=== PATIENT | female | born 1930 | race Caucasian/White ===

== ENCOUNTER 2020-05-25 09:30 | Inpatient (IN) | payer MEDICARE ==
[2020-05-25] MEDS ORDERED: Ondansetron ODT 4 MG TAB PO PRN (11:25)
[2020-05-25] MEDS ORDERED: Acetaminophen 650 MG Suppository PR PRN (11:25)
[2020-05-25] MEDS ORDERED: Ondansetron PF 4 MG/2 ML Vial IVP PRN (11:25)
[2020-05-25] MEDS ORDERED: Acetaminophen 325 MG TAB PO PRN (11:25)
[2020-05-25 12:23] LABS: Lactic Acid 3.8 mmol/L (0.5-2.2)
[2020-05-25 12:49] LABS: CKMB 1.6 ng/mL (0-6.6)
[2020-05-25 12:51] LABS: Anisocytosis SLIGHT = 6-15 cells (100X) (0-5/hpf); Band 12 % (5-11); Hemoglobin 7.7 g/dL (12.0-16.0); Large Platelets SLIGHT; Lymphocytes 28 % (21-51); MDiff Complete? YES; Mean Corpuscular HGB CONC 34.5 g/dL (32.0-36.0); Mean Corpuscular Hemoglobin 30.9 pg (27.0-31.0); Mean Corpuscular Volume 89.8 fL (78.0-98.0); Mean Platelet Volume 14.3 fL (7.4-10.4); Monocytes 15 % (0-10); Neutrophil 44 % (42-75); Nucleated RBC 10 % (0); Ovalocytes SLIGHT = 2-5 cells (100X) (0-1/hpf); Platelet Count 33 thou/uL (130-400); Platelet Morphology Comment Appears Decreased; Polychromasia MODERATE = 3-4 cells (100X) (0-2/hpf); RBC Distribution Width 16.4 % (11.5-14.5); Reactive Lymphocytes 1 % (0-10); Red Blood Cell (RBC) Count 2.48 mill/uL (4.20-5.40); Schistocytes SLIGHT = 2-5 cells (100X) (0-1/hpf); Target Cells SLIGHT = 2-5 cells (100X) (0-1/hpf); Tear Drops SLIGHT = 2-5 cells (100X) (0-1/hpf); White Blood Cell (WBC) Count 2.5 thou/uL (4.8-10.8)
[2020-05-25 14:04] LABS: Troponin I 0.033 ng/mL (< 0.028)
[2020-05-25] MEDS: Metoclopramide HCl 10 MG/2 ML VIAL IVP SCH ×2 (16:00→20:29)
[2020-05-25] MEDS: Sodium Chloride 0.9% 1,000 ML IV SCH (16:00)
[2020-05-25 16:39] LABS: Troponin I 0.037 ng/mL (< 0.028)
[2020-05-25 18:23] LABS: SARS-CoV-2 PCR by NAA Not Detected (NotDetected)
[2020-05-25] MEDS: Pantoprazole 40 MG VIAL IVP SCH (20:06)
[2020-05-26] MEDS: Guaifenesin DM 100-10/5 ML UDCUP PO PRN ×3 (01:15→21:29)
[2020-05-26 05:11] LABS: Anion Gap 15 mmol/L (10-20); BUN (Urea Nitrogen) 46 mg/dL (9.8-20.1); Calc. Creatinine Clearance 28 mL/min (70-130); Calcium 7.8 mg/dL (7.8-10.44); Carbon Dioxide 22 mmol/L (23-31); Chloride 104 mmol/L (98-107); Glucose 121 mg/dL (83-110); Potassium 3.5 mmol/L (3.5-5.1); Sodium 137 mmol/L (136-145)
[2020-05-26] MEDS: Metoclopramide HCl 10 MG/2 ML VIAL IVP SCH ×3 (05:47→21:08)
[2020-05-26 06:17] LABS: Anisocytosis SLIGHT = 6-15 cells (100X) (0-5/hpf); Band 8 % (5-11); Eosinophils 1 % (0-10); Hemoglobin 6.4 g/dL (12.0-16.0); Lymphocytes 40 % (21-51); MDiff Complete? YES; Mean Corpuscular HGB CONC 33.7 g/dL (32.0-36.0); Mean Corpuscular Volume 91.9 fL (78.0-98.0); Mean Platelet Volume 13.7 fL (7.4-10.4); Monocytes 12 % (0-10); Neutrophil 38 % (42-75); Nucleated RBC 22 % (0); Platelet Count 25 thou/uL (130-400); Platelet Morphology Comment Appears Decreased; RBC Distribution Width 16.4 % (11.5-14.5); Red Blood Cell (RBC) Count 2.07 mill/uL (4.20-5.40); White Blood Cell (WBC) Count 1.8 thou/uL (4.8-10.8)
[2020-05-26 08:14] VITALS: BMI 23.7
[2020-05-26] MEDS ORDERED: FLU VACC QS2020-21(65YR UP)/PF 240 MCG/0.7 ML SYRINGE IM ONE (09:00)
[2020-05-26] MEDS: Pantoprazole 40 MG VIAL IVP SCH ×2 (10:49→21:08)
[2020-05-26] MEDS: Sodium Chloride 0.9% 1,000 ML IV SCH (10:53)
[2020-05-26] MEDS: Benzonatate 100 MG CAP PO PRN (17:38)
[2020-05-27] MEDS: Guaifenesin DM 100-10/5 ML UDCUP PO PRN ×3 (05:23→16:27)
[2020-05-27] MEDS: Benzonatate 100 MG CAP PO PRN ×2 (05:23→10:50)
[2020-05-27] MEDS: Metoclopramide HCl 10 MG/2 ML VIAL IVP SCH (05:23)
[2020-05-27 06:34] LABS: Anion Gap 12 mmol/L (10-20); BUN (Urea Nitrogen) 39 mg/dL (9.8-20.1); Calc. Creatinine Clearance 34 mL/min (70-130); Calcium 8.1 mg/dL (7.8-10.44); Carbon Dioxide 23 mmol/L (23-31); Chloride 104 mmol/L (98-107); Glucose 150 mg/dL (83-110); Potassium 3.4 mmol/L (3.5-5.1); Sodium 136 mmol/L (136-145)
[2020-05-27 06:44] LABS: Mean Corpuscular Hemoglobin 30.9 pg (27.0-31.0); Mean Corpuscular Volume 90.9 fL (78.0-98.0); Mean Platelet Volume 13.8 fL (7.4-10.4); Platelet Count 29 thou/uL (130-400); RBC Distribution Width 16.1 % (11.5-14.5); Red Blood Cell (RBC) Count 2.59 mill/uL (4.20-5.40); White Blood Cell (WBC) Count 2.5 thou/uL (4.8-10.8)
[2020-05-27 06:58] LABS: Band 9 % (5-11); Eosinophils 3 % (0-10); Lymphocytes 33 % (21-51); MDiff Complete? YES; Monocytes 16 % (0-10); Neutrophil 39 % (42-75); Nucleated RBC 18 % (0); Platelet Morphology Comment Appears Decreased
[2020-05-27] MEDS: Potassium Chloride 20 MEQ TAB PO SCH ×2 (08:58→16:27)
[2020-05-27] MEDS: Pantoprazole 40 MG VIAL IVP SCH ×2 (08:59→22:06)
[2020-05-27] MEDS ORDERED: D5W-AA 4.25% with LYTES 1,000 ML BAG IV SCH (09:30)
[2020-05-27] MEDS ORDERED: D5 1/2 NS w/20 mEq KCL 1,000 ML IV SCH ×2 (11:00→11:02)
[2020-05-27] MEDS ORDERED: D5 0.9% NS w/ 20 mEq KCl 1,000 ML IV SCH (11:15)
[2020-05-27] MEDS: Sodium Chloride 0.9% 1,000 ML IV SCH (11:17)
[2020-05-27 12:06] LABS: Phosphorus 2.7 mg/dL (2.3-4.7)
[2020-05-27] MEDS: D5 0.9% NS w/ 20 mEq KCl 1,000 ML IV SCH (14:21)
[2020-05-27] MEDS ORDERED: MEROPENEM 1 GM/50 ML 1 GM in Premix Bag 1 BAG IVPB SCH (14:30)
[2020-05-27] MEDS: Senokot S 8.6-50 MG TAB PO SCH (21:24)
[2020-05-27] MEDS: Polyethylene Glycol 3350 17 GM Packet PO SCH (21:24)
[2020-05-27] MEDS: Acetaminophen 325 MG TAB PO SCH (21:25)
[2020-05-27] MEDS: Bisacodyl 10 MG SUPP PR SCH (21:26)
[2020-05-27] MEDS: MEROPENEM 1 GM/50 ML 1 GM in Premix Bag 1 BAG IVPB SCH (22:06)
[2020-05-28] MEDS: Guaifenesin DM 100-10/5 ML UDCUP PO PRN ×3 (00:11→21:42)
[2020-05-28] MEDS: Benzonatate 100 MG CAP PO PRN ×3 (00:11→21:41)
[2020-05-28] MEDS: MEROPENEM 1 GM/50 ML 1 GM in Premix Bag 1 BAG IVPB SCH ×3 (06:15→21:33)
[2020-05-28] MEDS: Acetaminophen 325 MG TAB PO SCH ×3 (07:45→21:34)
[2020-05-28] MEDS: Bisacodyl 10 MG SUPP PR SCH (07:49)
[2020-05-28] MEDS: Pantoprazole 40 MG VIAL IVP SCH (07:50)
[2020-05-28] MEDS: Senokot S 8.6-50 MG TAB PO SCH ×3 (07:51→21:34)
[2020-05-28] MEDS: Polyethylene Glycol 3350 17 GM Packet PO SCH (07:51)
[2020-05-28] MEDS: Citrucel 500 MG TAB PO SCH (07:59)
[2020-05-28 08:32] LABS: Phosphorus 2.5 mg/dL (2.3-4.7)
[2020-05-28 08:37] LABS: ALT (SGPT) 7 U/L (8-55); AST (SGOT) 6 U/L (5-34); Albumin 3.1 g/dL (3.4-4.8); Alkaline Phosphatase 56 U/L (40-110); Anion Gap 12 mmol/L (10-20); BUN (Urea Nitrogen) 31 mg/dL (9.8-20.1); Calc. Creatinine Clearance 42 mL/min (70-130); Calcium 8.1 mg/dL (7.8-10.44); Carbon Dioxide 24 mmol/L (23-31); Chloride 107 mmol/L (98-107); Globulin 2.3 g/dL (2.4-3.5); Glucose 122 mg/dL (83-110); Magnesium 2.1 mg/dL (1.6-2.6); Potassium 3.8 mmol/L (3.5-5.1); Protein, Total 5.4 g/dL (5.8-8.1); Sodium 139 mmol/L (136-145)
[2020-05-28] MEDS ORDERED: traMADol HCl 50 MG TAB PO PRN (08:56)
[2020-05-28 09:16] LABS: Anisocytosis MODERATE=16-30 cells (100X) (0-5/hpf); Band 5 % (5-11); Eosinophils 1 % (0-10); Hemoglobin 7.7 g/dL (12.0-16.0); Large Platelets SLIGHT; Lymphocytes 50 % (21-51); MDiff Complete? YES; Mean Corpuscular HGB CONC 33.3 g/dL (32.0-36.0); Mean Corpuscular Hemoglobin 30.7 pg (27.0-31.0); Mean Corpuscular Volume 92.1 fL (78.0-98.0); Mean Platelet Volume 14.6 fL (7.4-10.4); Metamyelocyte 1 % (0-0); Monocytes 5 % (0-10); Myelocyte 1 % (0-0); Neutrophil 36 % (42-75); Nucleated RBC 11 % (0); Platelet Count 26 thou/uL (130-400); Platelet Morphology Comment Appears Decreased; Poikilocytosis SLIGHT = 6-15 cells (100X) (0-5/hpf); Polychromasia SLIGHT = 2-3 cells (100X) (0-2/hpf); RBC Distribution Width 16.4 % (11.5-14.5); Reactive Lymphocytes 1 % (0-10); Red Blood Cell (RBC) Count 2.52 mill/uL (4.20-5.40)
[2020-05-28] MEDS: D5 0.9% NS w/ 20 mEq KCl 1,000 ML IV SCH (14:39)
[2020-05-29 05:35] LABS: ALT (SGPT) 7 U/L (8-55); AST (SGOT) 7 U/L (5-34); Albumin 3.1 g/dL (3.4-4.8); Alkaline Phosphatase 58 U/L (40-110); Anion Gap 12 mmol/L (10-20); BUN (Urea Nitrogen) 26 mg/dL (9.8-20.1); Bilirubin, Total 0.8 mg/dL (0.2-1.2); Calc. Creatinine Clearance 48 mL/min (70-130); Calcium 8.1 mg/dL (7.8-10.44); Carbon Dioxide 24 mmol/L (23-31); Chloride 107 mmol/L (98-107); Globulin 2.3 g/dL (2.4-3.5); Glucose 107 mg/dL (83-110); Potassium 4.1 mmol/L (3.5-5.1); Protein, Total 5.4 g/dL (5.8-8.1); Sodium 139 mmol/L (136-145)
[2020-05-29] MEDS: MEROPENEM 1 GM/50 ML 1 GM in Premix Bag 1 BAG IVPB SCH ×3 (06:11→20:00)
[2020-05-29 06:14] LABS: Platelet Count 21 thou/uL (130-400)
[2020-05-29 06:36] LABS: Band 6 % (5-11); Hemoglobin 7.9 g/dL (12.0-16.0); Lymphocytes 45 % (21-51); MDiff Complete? YES; Mean Corpuscular HGB CONC 32.1 g/dL (32.0-36.0); Mean Corpuscular Hemoglobin 29.7 pg (27.0-31.0); Mean Corpuscular Volume 92.5 fL (78.0-98.0); Mean Platelet Volume 14.2 fL (7.4-10.4); Monocytes 7 % (0-10); Myelocyte 1 % (0-0); Neutrophil 39 % (42-75); Nucleated RBC 7 % (0); Platelet Morphology Comment Appears Decreased; RBC Distribution Width 16.3 % (11.5-14.5); Reactive Lymphocytes 1 % (0-10); Red Blood Cell (RBC) Count 2.65 mill/uL (4.20-5.40)
[2020-05-29] MEDS ORDERED: Loratadine 10 MG TAB PO PRN (07:34)
[2020-05-29] MEDS ORDERED: Zolpidem Tartrate 5 MG TAB PO PRN (07:34)
[2020-05-29] MEDS ORDERED: hydrALAZINE 20 MG/ML VIAL SLOW IVP PRN (07:34)
[2020-05-29] MEDS ORDERED: Sodium Chloride 0.65% Nasal 44 ML BOT EA NARE PRN (07:34)
[2020-05-29] MEDS ORDERED: Loperamide HCl 2 MG CAP PO PRN (07:34)
[2020-05-29] MEDS ORDERED: Bisacodyl 5 MG TAB PO PRN (07:34)
[2020-05-29] MEDS ORDERED: Calcium Carbonate 500 MG ChewTAB PO PRN (07:34)
[2020-05-29] MEDS ORDERED: Cepastat Lozenges 1 LOZ PO PRN (07:34)
[2020-05-29] MEDS ORDERED: GUAIFENESIN SF SOLN 200 MG/10 ML UDCUP PO PRN (07:34)
[2020-05-29] MEDS: Citrucel 500 MG TAB PO SCH (09:29)
[2020-05-29] MEDS: Senokot S 8.6-50 MG TAB PO SCH ×2 (09:29→20:00)
[2020-05-29] MEDS ORDERED: Furosemide 20 MG/2 ML VIAL SLOW IVP SCH (11:45)
[2020-05-29] MEDS: Guaifenesin DM 100-10/5 ML UDCUP PO PRN (20:11)
[2020-05-29] MEDS: Benzonatate 100 MG CAP PO PRN (20:11)
[2020-05-30] MEDS: MEROPENEM 1 GM/50 ML 1 GM in Premix Bag 1 BAG IVPB SCH (05:27)
[2020-05-30 06:54] LABS: Hemoglobin 8.6 g/dL (12.0-16.0); Mean Corpuscular HGB CONC 32.8 g/dL (32.0-36.0); Mean Corpuscular Hemoglobin 30.3 pg (27.0-31.0); Mean Corpuscular Volume 92.6 fL (78.0-98.0); Mean Platelet Volume 15.3 fL (7.4-10.4); Platelet Count 24 thou/uL (130-400); RBC Distribution Width 16.2 % (11.5-14.5); Red Blood Cell (RBC) Count 2.84 mill/uL (4.20-5.40); White Blood Cell (WBC) Count 2.4 thou/uL (4.8-10.8)
[2020-05-30 07:02] LABS: ALT (SGPT) 7 U/L (8-55); AST (SGOT) 8 U/L (5-34); Albumin 3.2 g/dL (3.4-4.8); Alkaline Phosphatase 67 U/L (40-110); Anion Gap 13 mmol/L (10-20); BUN (Urea Nitrogen) 19 mg/dL (9.8-20.1); Calc. Creatinine Clearance 49 mL/min (70-130); Calcium 8.3 mg/dL (7.8-10.44); Carbon Dioxide 26 mmol/L (23-31); Chloride 106 mmol/L (98-107); Globulin 2.4 g/dL (2.4-3.5); Glucose 103 mg/dL (83-110); Potassium 3.8 mmol/L (3.5-5.1); Protein, Total 5.6 g/dL (5.8-8.1); Sodium 141 mmol/L (136-145)
[2020-05-30 08:06] LABS: Band 4 % (5-11); Eosinophils 4 % (0-10); Lymphocytes 46 % (21-51); MDiff Complete? YES; Monocytes 8 % (0-10); Neutrophil 32 % (42-75); Nucleated RBC 6 % (0); Platelet Morphology Comment Appears Decreased; Polychromasia SLIGHT = 2-3 cells (100X) (0-2/hpf); Reactive Lymphocytes 4 % (0-10); Schistocytes SLIGHT = 2-5 cells (100X) (0-1/hpf)
[2020-05-30] MEDS ORDERED: Furosemide 20 MG TAB PO SCH (09:00)
[2020-05-30] MEDS ORDERED: Lisinopril 5 MG TAB PO SCH (09:00)
[2020-05-30 09:39] VITALS: BP 183/77; TEMP 98.2
[2020-05-30] MEDS: Citrucel 500 MG TAB PO SCH (09:44)
[2020-05-30] MEDS: Senokot S 8.6-50 MG TAB PO SCH (09:44)
[2020-05-30] MEDS ORDERED: Carvedilol 6.25 MG TAB PO SCH (17:00)
== END 2020-05-30 12:33 | disposition home or self-care (01) | DRG 871 ==
LOC: ERS 09:30 → ERHOLD 10:47 → 2NO 15:08 → ONC 05-26 14:17
PROVIDERS: ADMIT Internal Medicine; ATTEND Internal Medicine
PROC: 30233N1 Transfusion of Nonautologous Red Blood Cells into Peripheral Vein, Percutaneous Approach (ICD-10-PCS; principal; 2020-05-26)
DX: A41.9 Sepsis, unspecified organism (principal); D61.810 Antineoplastic chemotherapy induced pancytopenia; J69.0 Pneumonitis due to inhalation of food and vomit; J96.01 Acute respiratory failure with hypoxia; G92 Toxic encephalopathy; I24.8 Other forms of acute ischemic heart disease; N17.9 Acute kidney failure, unspecified; C92.00 Acute myeloblastic leukemia, not having achieved remission; J90 Pleural effusion, not elsewhere classified; I13.0 Hypertensive heart and chronic kidney disease with heart failure and stage 1 through stage 4 chronic kidney disease, or unspecified chronic kidney disease; I50.32 Chronic diastolic (congestive) heart failure; T45.1X5A Adverse effect of antineoplastic and immunosuppressive drugs, initial encounter; E78.5 Hyperlipidemia, unspecified; D46.9 Myelodysplastic syndrome, unspecified; I25.10 Atherosclerotic heart disease of native coronary artery without angina pectoris; N18.30 Chronic kidney disease, stage 3 unspecified; F17.210 Nicotine dependence, cigarettes, uncomplicated; R11.2 Nausea with vomiting, unspecified; K59.00 Constipation, unspecified; M54.5 Low back pain; G89.29 Other chronic pain; I07.1 Rheumatic tricuspid insufficiency; Z79.899 Other long term (current) drug therapy; Z95.1 Presence of aortocoronary bypass graft; Z88.5 Allergy status to narcotic agent; Z88.0 Allergy status to penicillin
CPT/HCPCS: 36415; 36430; 71045; 71046; 80048; 80053; 82553; 83605; 83735; 83880; 84100; 85025; 86140; 86850; 86900; 86901; 87635; 93306; 94640; 99285; C9113; J1940; J2185; J2765; J3480; J7620; P9016; U0003; U0005